=== PATIENT | female | born 1980 | race Caucasian/White ===

== ENCOUNTER 2022-11-17 06:02 | Day surgery (SDC) | payer BC, SELFPAY ==
[2022-11-17] MEDS: LACTATED RINGERS 1000 ML 1,000 ML 100 ML IV (06:00)
[2022-11-17] MEDS: SODIUM CHLORIDE 0.9 % (FLUSH) 10 ML SYRINGE IVF (06:12)
[2022-11-17 06:13] VITALS: BP 140/99; PULSE 76; RESP 16; TEMP 36.3; O2SAT 97; BMI 24.5
[2022-11-17 06:32] LABS: Ur HCG Qualitative* Negative (Negative)
[2022-11-17 06:46] LABS: Hemoglobin* 13.7 gm/dL (12.0-16.0)
[2022-11-17 07:01] LABS: Creatinine* 0.8 mg/dL (0.5-1.5); Est. Creatinine Clearance* 68.42; Estimated Glomerular Filt Rate 94 ml/min
--- NOTE | 2022-11-17 07:11 | W.ANESCHARGE ---
Anesthesia Charges Start Date/Time Anesthesia Start Date: 11/17/22 Anesthesia Start Time: 07:23 Stop Date/Time Anesthesia Stop Date: 11/17/22 Anesthesia Stop Time: 08:27
[2022-11-17 08:25] VITALS: BP 120/79; PULSE 55; RESP 16; TEMP 36.3; O2SAT 100
--- NOTE | 2022-11-17 08:29 | SUR.OPER ---
395cc fluid deficit from procedure. notified.
--- NOTE | 2022-11-17 08:29 | W.ANESCHARGE ---
Anesthesia Charges Start Date/Time Anesthesia Start Date: 11/17/22 Anesthesia Start Time: 07:23 Stop Date/Time Anesthesia Stop Date: 11/17/22 Anesthesia Stop Time: 08:27
[2022-11-17 08:30] VITALS: BP 110/85; PULSE 56; RESP 16; O2SAT 100
--- NOTE | 2022-11-17 08:36 | P.GYNPRC_ITS ---
Procedure Note Time Seen by Provider: 07:00 Date of procedure: 11/17/22 Procedure Description: Preoperative diagnosis: 42 year-old with with abnormal uterine bleeding - intermenstrual bleeding with suspected uterine septum and intrauterine synechiae. Postoperative diagnosis: Abnormal uterine bleeding. Intermenstrual bleeding with confirmed uterine septum and intrauterine synechiae. Procedure: Hysteroscopy, dilation and curettage. Ultrasound performed intraoperatively due to discrepancy between hysteroscopic findings and last ultrasound report on 08/2020. Anesthesia: Conscious sedation with paracervical block. Surgeon: Colette Aleman MD Estimated blood loss: <5 mL Specimen: Endometrial curettings to pathology. Findings: Exam under anesthesia: Cervix palpates normal. Uterus: anterior position, 6 week size, mobile, without nodularity/masses palpable. Adnexa were without fullness or nodularity. On hysteroscopy: thick uterine septum noted. Synechiae noted on right side of septum. Intraoperative ultrasound confirmed uterine septum with no concern for bicornuate uterus. Procedure: Eleanor was taken to the operating where conscious sedation was found to be adequate. She was placed in the dorsal lithotomy position. An exam under anesthesia was performed with findings stated above. She was then prepped and draped in normal sterile manner. A bivalve metal speculum was placed in the vaginal canal. The cervix and vaginal canal appear normal. A paracervical block was placed using 1%lidocaine: 5 mL injected at the 4 and 8 o'clock positions on the cervix. The anterior lip of the cervix was then grasped with a tenaculum. The cervix was dilated to Hegar 6. The uterus sounded to 7 cm. The hysteroscope advanced into the uterus and a diagnostic hysteroscopy was performed with findings stated above. Normal saline was used as the insufflation medium. Soft tissue shaver was used to obtain endometrial curetting from both sides of the septum. There was low suction from the soft tissue shaver so the [employer] sales promotion representative was contacted to troubleshoot the issue. This was resolved and specimen was obtained. The hysteroscope was then removed. Fluid deficit at the end of the procedure 370 mL. The hysteroscope and tenaculum were removed from the uterus and cervix. Excellent hemostasis noted. Nothing was used for hemostasis. The patient tolerated the procedure well. Sponge, lap and instruments counts were correct at the end of the procedure. The patient was awakened from anesthesia and taken to the recovery area in stable condition.
[2022-11-17 08:45] VITALS: BP 109/94; PULSE 57; RESP 16; O2SAT 100
== END 2022-11-17 09:04 | disposition home or self-care (01) ==
PROVIDERS: PCP Family Medicine; Visit Provider Obstetrics & Gynecology
PROC: 0UDB8ZZ Extraction of Endometrium, Via Natural or Artificial Opening Endoscopic (ICD-10-PCS; CPT 58558; principal; 2022-11-17 07:15)
DX: N93.8 Other specified abnormal uterine and vaginal bleeding (principal); N92.3 Ovulation bleeding; Q51.28 Other and unspecified doubling of uterus; N85.6 Intrauterine synechiae
CPT/HCPCS: 58558; 36415; 76857; 76998; 81025; 82565; 85018; 86850; 86900; 86901; 88305; 952; J1100; J1885; J2250; J2405; J2704; J3010; J7120

== ENCOUNTER 2022-12-15 07:01 | Outpatient (CLI) | payer BC, SELFPAY ==
--- NOTE | 2022-12-15 07:15 | CRLHL7_ITS ---
For Patients: As a result of the Century Cures Act, medical imaging exams and procedure reports are released immediately into your electronic medical record. You may view this report before your referring provider. If you have questions, please contact your health care provider. CLINICAL HISTORY: DOUBLING OF UTERUS (UTERINE SEPTATE) COMPARISON: none TECHNIQUE: Hernandez scale and color Doppler images were acquired of the kidneys and urinary bladder. FINDINGS: Sonographic images reveal a symmetric appearance of the kidneys. There is no evidence of hydronephrosis, mass or calculus. The right kidney measures 11.2cm in length and the left kidney measures 8.9cm in length. The renal cortex appears of normal thickness. The urinary bladder appears normal. Color Doppler images reveal a normal appearance of both ureteral jets. There is no evidence of bladder calculi or diverticula. IMPRESSION: Normal renal ultrasound. Dictated by Ron Yeager MD @ 12/15/2022 10:05:44 AM (Electronically Signed)
== END 2022-12-15 07:02 | disposition home or self-care (01) ==
LOC: US 07:02
PROVIDERS: PCP Family Medicine; Visit Provider Obstetrics & Gynecology
DX: Q51.28 Other and unspecified doubling of uterus (principal)
CPT/HCPCS: 76770

== ENCOUNTER 2023-02-03 07:09 | Day surgery (SDC) | payer BC, SELFPAY ==
[2023-02-03] VITALS (20 sets, daily range): BP systolic 91–142; BP diastolic 52–98; PULSE 56–100; RESP 14–18; TEMP 35.5–36.8; O2SAT 97–100; BMI 25.0
[2023-02-03 07:59] LABS: Ur HCG Qualitative* Negative (Negative)
[2023-02-03 08:00] LABS: Hemoglobin* 13.6 gm/dL (12.0-16.0)
[2023-02-03] MEDS: SODIUM CHLORIDE 0.9 % (FLUSH) 10 ML SYRINGE IVF (08:06)
[2023-02-03] MEDS: LACTATED RINGERS 1000 ML 1,000 ML 100 ML IV ×4 (08:06→13:52)
[2023-02-03 08:15] LABS: Creatinine* 0.8 mg/dL (0.5-1.5); Est. Creatinine Clearance* 68.42; Estimated Glomerular Filt Rate 94 ml/min
--- NOTE | 2023-02-03 08:18 | P.NB_ITS ---
Nerve Block Nerve Block Time Seen by Provider: 09:38 Date Seen: 02/03/23 Type of block requested by surgeon for post-operative analgesia: TAP Side: bilateral Time out performed: Yes Verification of patient name: Yes Verification of date of : Yes Site marking: site marked Name of person performing procedure: Bryon Continuous monitoring Was continuous monitoring of O2 sat, B/P, quality assurance monitor body, recorded every 15 minutes?: Yes Procedure Checklist: sterile prep, needles and gloves Ultrasound guided. Images saved: Yes Medications given in 5ml increments after negative aspiration: Marcaine %: 0.25 mL: 30 Needle gauge: 20 and Exparel mL: 10 Patient tolerated procedure well: Yes Additional comments: Needle noted adjacent to nerve Block Charges Block Charge (with Pro Fee): TAP Bilateral Use of Ultrasound Machine for Block: Yes- US Guidance/pain block
--- NOTE | 2023-02-03 08:18 | W.ANESCHARGE ---
Anesthesia Charges Start Date/Time Anesthesia Start Date: 02/03/23 Anesthesia Start Time: 09:30 Stop Date/Time Anesthesia Stop Date: 02/03/23 Anesthesia Stop Time: 13:45
--- NOTE | 2023-02-03 09:24 | W.PM.H&PU ---
History & Physical Update History & Physical Update H&P Reviewed and patient assessed: No changes noted
[2023-02-03] MEDS: CEFAZOLIN 2 GM INJ IVP (09:49)
--- NOTE | 2023-02-03 10:34 | W.ANESCHARGE ---
Anesthesia Charges Start Date/Time Anesthesia Start Date: 02/03/23 Anesthesia Start Time: 09:30 Stop Date/Time Anesthesia Stop Date: 02/03/23 Anesthesia Stop Time: 13:45
[2023-02-03] MEDS: KETOROLAC 30 MG/ML inj IVP (13:27)
--- NOTE | 2023-02-03 14:01 | PM.GYNPRHY ---
Procedure Type of Hysterectomy: Total Laparoscopic Pre-op/Post-op diagnoses: Pre-Op/Post-Op Diagnoses Operation Date: 02/03/23 08:40 <No data on this case meets the specified criteria> Procedure: Procedures Operation Date: 02/03/23 08:40 Actual Procedure Side Surgeon p Laparoscopic Total Abdominal Hysterectomy, Bilateral Salpingectomy, Left Ovarian Cystectomy, Lysis of adhesion, Cystoscopy, and all other indicated procedures Colette Aleman MD Estimated blood loss (mL): 25 Anesthesia type: General Complications: none Fluids: crystalloid Fluid amount (mL): 2,000 Urine output (mL): 850 Weight of Uterus: 3.386 oz Specimen: uterus, left tube, right tube and other (Left ovarian cyst) Disposition: floor Narrative: Preoperative diagnosis: Eleanor is a 42-year-old 2 para 2001 with abnormal uterine bleeding - menorrhagia, dysmenorrhea, uterine septum, and uterine synechiae (diagnosed on previous hysteroscopy). Postoperative diagnosis: Same. 3 cm simple left ovarian cyst. Intra-abdominal adhesions. Procedure: Total laparoscopic hysterectomy, bilateral salpingectomy, left ovarian cystectomy, lysis of adhesions, and diagnostic cystoscopy. Anesthesia: General endotracheal, TAP, and local Surgeon: Colette Aleman MD Assist: Leslee Dickerson MD Estimated blood loss: 25 mL. IV Fluid: 2000 mL Urine output: 850 mL Drains: Everett to gravity Specimen: Uterus, bilateral fallopian tubes, left ovarian cyst to pathology. Findings: On exam under anesthesia: The uterus was anterior position, approximately 6 week size, mobile without nodularity or masses palpable. Adnexa without mass or fullness palpable. On laparoscopy: Omental adhesions to the left anterior side wall, dense bladder adhesions to the lower uterine segment along previous section scar. Right ovary and fallopian tube were adhered to the right pelvic sidewall. Left ovary with a 3 cm simple ovarian cyst. Normal left Dense bladder. Liver and stomach appeared normal. Gallbladder and appendix not visualized. Procedure: Eleanor was taken to the operating room where general anesthetic was found to be adequate. She was placed in the dorsal lithotomy position and an exam under anesthesia was performed with findings stated above. She was then prepped and draped in a normal sterile manner. A Everett catheter was placed. A bivalve speculum was placed in the vaginal canal. A long Allis clamp was placed on the anterior lip of the cervix, in the uterus sounded to 9 cm. A medium size VCare uterine manipulator was then placed. The Allis clamp and speculum were removed from the cervix. Attention was then turned to performing the laparoscopic portion of the procedure. All incisions were infiltrated with 1% lidocaine with epi prior to incising the skin. A vertical, infraumbilical 0.5 cm incision was made. An 5 mm trocar was then placed under direct visualization. The abdomen was then insufflated with CO2 gas to a pressure of 15 mm of mercury. Two, pelvic ports were then placed approximately 3-4 finger breaths medial to the ischial crests. The trocar in the RLQ = 5mm, LLq = 11mm. These were placed under direct visualization. Lysis of adhesions was performed to release the omental adhesions that were adhered to the anterior abdominal wall. After lysis of adhesions, better visualization to the surgical field was obtained. Attention was then turned to performing the hysterectomy. Both ureters were visualized in the normal position bilaterally. The left fallopian tube was grasped and removed with sequential pedicles using the dissecting, ligasure blunt tip dissecting forceps. The specimen was removed. The left side of the hysterectomy was performed using the ligasure dissecting forceps. The 1st pedicles were starting with the broad ligament that was cauterized and and bisected. In sequence show pedicles were formed to divide the utero-ovarian ligament. Then sequential pedicles were made through the broad ligament. The posterior leaf of the broad ligament was then divided and sequential pedicles carried down to the level of the VCare cup. The anterior leaf of the broad ligament was then divided down to the level of the anterior aspect of the VCare cup and a bladder flap created. During the creation of the bladder flap, lysis of adhesions was performed with LigaSure, cold scissors, and Endopeanuts laparoscopic Kittner cotton. The bladder was back filled with sterile milk to help delineate bladder boundary. Upon the completion of the bladder flap. The uterine vessels were then skeletonized. The uterine vessels were then cauterized and divided. Then excess tissue was cleared over the top of the VCare cup using the dissecting forceps. The right salpingectomy and right side of the hysterectomy were then performed in a similar manner with the exception that the right fallopian tube needed to be dissected off the pelvic side wall. Right ovary remained adherent to the pelvic sidewall. The Ligasure Hippocrates Gatelab pen with the spatula attachment was then used to perform the colpotomy incising around the VCare cup. The uterus was removed and the fundus placed in the vaginal canal to maintain insufflation. The vaginal cuff was then reapproximated using 2-0 V lock suture in a running manner. Unfortunately, 1/[address] through the vaginal cuff closure, the needle was avulsed off the suture. The needle was placed in the vagina and removed intact through the vaginal. The the uterus was removed from the vaginal canal and sent to pathology. Decision was made to close the vaginal cuff from below with 0-Vicryl [id number]. All the pedicles and vaginal cuff were then closely visualized and hemostasis was noted. The Everett catheter was briefly removed. A diagnostic cystoscopy was performed using normal saline as the insufflation medium. The dome of the bladder was noted to be without injury and no evidence of any sutures from the vaginal cuff causing injury. Normal urine flow was noted through both ureteral orifices. Methylene blue IV was used to visualize the urine more easily. The Everett catheter was then replaced. Attention was then returned to the abdomen where hemostasis was verified. Left ovarian cystectomy was performed and the cyst was sent to pathology. The CO2 pressure decreased to 8mmHG and hemostasis verified. The fascia in the LLQ incision was approximated with 0-Vicryl suture using the Antwan Benavides fascial closure device. This was closed under direct visualization with the laparoscope. All trocars were removed under direct visualization. CO2 gas was allowed to escape the infraumbilical port prior to its removal. All skin incisions were re-approximated using 3-0 Monocryl in a running subcuticular manner. The remaining local anesthetic was injected into all incision sites. Exophin skin adhesive gel and adhesive bandages placed. The patient tolerated this procedure well. Sponge, lap and instrument counts were correct x2 at the end of the procedure and the patient was taken to the recovery area in stable condition. The patient received 2gm IV ancef prior to the start of the procedure. Surgical debriefed performed.
[2023-02-03] MEDS: IBUPROFEN 600 MG TABLET PO ×2 (17:36→23:03)
[2023-02-03] MEDS: ONDANSETRON 2 MG/ML inj 4 MG IVP (17:56)
--- NOTE | 2023-02-03 19:20 | PC.NURSE ---
Adjunct Nursing Faculty called Per Dr. Chung: Pt does not need to continue IV fluids as long as she is tolerating po fluids and food. Oncoming nurse updated.
--- NOTE | 2023-02-03 19:26 | PC.NURSE ---
End of shift note: Pt noted to be alert & oriented x 4 and able to make needs known. Pt has had family at beside since admission to med/surg recovery. Surgical incisions to abdomen noted to be closed with surgical glue and are open to air with no warmth, edema, redness or drainage observed upon inspection. Pt did have some nausea at beginning of dinner though this was effectively treated with PRN Zofran. Everett catheter in place with 150 mL urinary output so far this shift. Pt had 500 mL of water intake with supper. She states abdominal pain is 5/10 though declined PRN Oxycodone when offered. Scheduled Ibuprofen administered with dinner. LS Clear to all lobes bilaterally and bowel sounds active x 4. Pt states last BM was 02/03/23 AM. Pt able to reposition independently in bed. SCDs and AUGUSTIN stockings in place to bilateral lower extremities.
[2023-02-04 03:00] VITALS: BP 117/64; PULSE 91; RESP 16; TEMP 36.4; O2SAT 97
[2023-02-04 05:14] LABS: Hemoglobin* 11.5 gm/dL (12.0-16.0)
[2023-02-04 05:31] LABS: Creatinine* 0.9 mg/dL (0.5-1.5); Est. Creatinine Clearance* 60.82; Estimated Glomerular Filt Rate 81 ml/min
[2023-02-04] MEDS: IBUPROFEN 600 MG TABLET PO ×2 (05:47→11:11)
--- NOTE | 2023-02-04 06:46 | PC.NURSE ---
End of shift report [id number]: Patient reports mild discomfort to abdomen. Lap incisions clean, dry and intact. Small amount of vaginal bleeding with scant amount of serous fluid noted. Perez catheter patent, draining clear light blue urine. Patient requesting removal of catheter as it is causing her pain. Patient up and ambulatory, independently walking the hallways with , filing writer placed call to on-call, new order to DC perez catheter. Patient has continued to have large amount of output after perez removal, urine is clear, pale yellow with a hue of green. Pain managed well with scheduled ibuprofen. Tolerating food without reports of nausea or vomiting.
--- NOTE | 2023-02-04 07:42 | P.DS_ITS ---
DS: Providers Provider Time Seen by Provider: 07:00 Date Seen: 02/04/23 Primary care physician: Oanh Nuñez MD Attending Physician on discharge: Colette Aleman MD Date of Discharge: 02/04/23 DS: Diagnosis Discharge Diagnosis (1) Uterine septum: Status: Acute Problem details: s/p hysterectomy (2) Abnormal uterine bleeding: Status: Acute Problem details: s/p hysterectomy (3) Dysmenorrhea: Status: Acute Problem details: s/p hysterectomy (4) Uterine synechiae: Status: Acute Problem details: s/p hysterectomy (5) Acute blood loss anemia: Status: Acute Problem details: - Slightly anemic - Patient completely asymptomatic - No treatment necessary. I anticipate the patient will recover well from this. (6) S/P total hysterectomy: Status: Acute (7) Status post bilateral salpingectomy: Status: Acute (8) Left ovarian cyst: Status: Acute Problem details: - 3 cm simple cyst note during surgery - S/p left ovarian cystectomy [employer] DEVELOPMENT MANAGER-Discharge Summary Hospital Course Hospital Course Narrative: Eleanor is a 42 year old admitted on 02/03/2023 for scheduled surgery: Surgeries performed: Total laparoscopy hysterectomy Bilateral salpingectomy Left ovarian cystectomy Lysis of adhesions Diagnostic cystoscopy menorrhagia, dysmenorrhea, . Indication for surgery: menorrhagia, dysmenorrhea, uterine septum, and uterine synechiae. Intraoperative findings were notable for: On exam under anesthesia: The uterus was anterior position, approximately 6 week size, mobile without nodularity or masses palpable. Adnexa without mass or fullness palpable. On laparoscopy: Omental adhesions to the left anterior side wall, dense bladder adhesions to the lower uterine segment along previous section scar. Right ovary and fallopian tube were adhered to the right pelvic sidewall. Left ovary with a 3 cm simple ovarian cyst. Normal left Dense bladder. Liver and stomach appeared normal. Gallbladder and appendix not visualized. She had an uncomplicated surgery. Postoperative course has been uneventful. She progressed excellently through her postoperative milestones. Vitals have been stable. She has remained afebrile. Today, on postoperative day 1, she reports the pain is well controlled. She has been able to ambulate Without difficulty. She is tolerating regular diet. She is passing flatus. Perez catheter has been removed, and she is voiding without difficulty. Time Spent with Patient Time attestation: Total time spent providing and/or coordinating discharge services: Time spent: Less than 30 minutes [employer] DEVELOPMENT MANAGER - Exam Physical Exam: Vital signs: Temp Pulse Resp BP Pulse Ox O2 Del Method 97.5 F L 91 16 117/64 97 Room Air 02/04/23 03:00 02/04/23 03:00 02/04/23 03:00 02/04/23 03:00 02/04/23 03:00 02/04/23 03:00 Narrative: Physical exam: General: No acute distress Psych: Alert and oriented x4, full affect HEENT: Normocephalic, atraumatic Neck: No cervical adenopathy, no thyromegaly Heart: Regular rate and rhythm, no murmur rub or gallop Lungs: Clear to auscultation bilaterally Abdomen: Normoactive bowel sounds, soft, minimal tenderness, no rebound, or guarding. Mild distension. Incision: Appropriately tender to palpation. Clean, dry, and intact. No erythema, induration, or abnormal discharge/breakdown - 3 incisions. Skin: No lesions or rashes Lower extremities: No edema or erythema Pelvic exam: No bleeding on pad. [employer] DEVELOPMENT MANAGER - DS: Data Data Completed and Pending Labs on day of discharge: Labs from last 24 hours 02/04/23 02/03/23 02/03/23 05:05 Unknown 07:50 Hgb 11.5 L 13.6 Creatinine 0.9 0.8 Estimated Creat Clear 60.82 68.42 Estimated GFR 81 94 Urine HCG, Qual Negative Blood Type A Negative Antibody Screen NEGATIVE Procedures Procedures: Procedures Operation Date: 02/03/23 08:40 Actual Procedure Side Surgeon p Laparoscopic Total Abdominal Hysterectomy, Bilateral Salpingectomy, Cystectomy, Lysis of adhesion, Cystoscopy, and all other indicated procedures Colette Aleman MD Complications: none Discharge Plan Discharge Disposition: Home, Self-Care Discharging Surgeon: Colette Aleman MD Follow-Up Appointment: 2 week op note Prescriptions: New docusate sodium 100 mg Capsule 100 mg PO BID PRN (Reason: Constipation) 30 Days Qty: 60 0RF ibuprofen 600 mg Tablet 600 mg PO Q6H 30 Days Qty: 120 0RF simethicone 80 mg Tablet,Chewable 160 mg PO Q4H PRN (Reason: gas) 30 Days Qty: 60 0RF oxycodone 5 mg Tablet 5 mg PO Q6H PRN (Reason: Moderate Pain) 14 Days Qty: 15 0RF acetaminophen [Tylenol Extra Strength] 500 mg tablet 500 mg PO Q6H PRN (Reason: fever or pain) Qty: 60 0RF Continued spironolactone 100 mg tablet 100 mg PO QDAY Discharge Diet: Regular Patient Instructions: Surgical Site Infections (DC) Additional Instructions: LAPAROSCOPY POSTOPERATIVE INSTRUCTIONS ACTIVITY * No heavy lifting/pushing/pulling for 4-6 weeks. Do not lift anything more than about 15 lbs (such as laundry, groceries, children, pets), vacuum, push heavy doors or grocery carts, etc. You may climb stairs as tolerated. * Do not put anything in the vagina for 6-8 weeks after surgery unless otherwise instructed by your doctor (including tampons, douching, sexual intercourse, etc). * No driving for about 2 weeks after surgery, while you are taking narcotic pain medication, or until you feel that you are ready. Practice checking your blind spot and stepping hard on the brake. * Avoid sitting or lying in bed for more than 2 hours at a time while you are awake to reduce your risk of blood clots. * You may return to work when directed by your physician. Please contact your doctor if you need any return to work letters or medical leave paperwork to be completed. WOUND CARE * You will have 4 small incisions on your abdomen. There will be dissolvable stitches under your skin that do not need to be removed. * Shower daily after surgery. Clean your incision with mild antibacterial soap and water. Pat your incision dry with a clean towel. No tub baths until wound is completely healed. * Wash your hands frequently, especially before touching your incision, changing any dressings, after using the restroom, and before eating. PAIN MANAGEMENT * Take your oral pain medication as needed. You should be taking Ibuprofen 600mg every 6 hours with 1000 mg of Tylenol every 6 hours. You can take these together every six hours or alternate them every 3 hours. You should then take the oxycodone as needed if you have breakthrough pain on top of the Tylenol and Ibuprofen. * Some pain medications can cause constipation so you should take a stool softener (i.e. colace/senna) while you are on these medications. * You may also take milk of magnesia or Miralax for constipation. WHAT TO EXPECT AT HOME * Recovery from surgery is generally 2-4 weeks, but sometimes longer for more strenuous activity. It is normal to be very tired during this time. * It is normal to have some drainage or a small amount of vaginal bleeding after surgery which may last up to 6 weeks. * You may go home with a perez catheter in your bladder. If so, you will need to follow up for a nurse visit in 7-10 days for removal. * You will most likely experience gas pain, abdominal swelling, or shoulder pain for 24-72 hours after surgery. This is from the carbon dioxide gas put into your abdomen to better visualize your organs. A warm shower, heating pad, and/or walking may help. WHEN TO CALL YOUR DOCTOR : * Fever (>100.4?F or 38.0?C) or chills. * Incision problems such as redness, warmth, swelling, or foul-smelling drainage. * Severe nausea or persistent vomiting. * Bright red vaginal bleeding (soaking >1 pad/hour) or foul-smelling vaginal drainage. * Severe pain not relieved with pain medication. * Pain and swelling in your legs, especially if it is only on one side and not the other. * Pain with urination, cloudy urine, or foul-smelling urine. * Or if you have any other problems or questions. CALL 911 OR GO TO THE EMERGENCY ROOM IF YOU HAVE: Any shortness of breath, d ifficulty breathing, or chest pain. Forms: Work/School Release Follow-up: Colette Aleman MD [Staff Physician] - Oanh Nuñez MD [Primary Care Provider] - Discharge Orders: Discharge Order (Routine); Ordered 02/04/23 Ordered By: Colette Aleman
[2023-02-04 08:40] VITALS: BP 111/73; PULSE 74; RESP 18; TEMP 36.9; O2SAT 94
--- NOTE | 2023-02-04 14:37 | PC.NURSE ---
shift note: vss stable. pt up indept. abd appears distended,tender, soft on palpation. Lap sites to abd c/d/i. pt has active BS x4. pt tolerating reg diet. IV dc'd intact. reviewed dc instructions, copies sent with pt at ri. belongings sent with pt at ri.
== END 2023-02-04 11:50 | disposition home or self-care (01) ==
LOC: OR 07:10 → MEDSURG 07:12
PROVIDERS: PCP Family Medicine; Visit Provider Obstetrics & Gynecology
PROC: 0UT94ZZ Resection of Uterus, Percutaneous Endoscopic Approach (ICD-10-PCS; CPT 58571; principal; 2023-02-03 08:30)
DX: N92.0 Excessive and frequent menstruation with regular cycle (principal); N94.6 Dysmenorrhea, unspecified; N83.292 Other ovarian cyst, left side; N85.6 Intrauterine synechiae; Q51.28 Other and unspecified doubling of uterus; K66.0 Peritoneal adhesions (postprocedural) (postinfection); G89.18 Other acute postprocedural pain; D62 Acute posthemorrhagic anemia
CPT/HCPCS: 58571; 58662; 49329; 00840; 36415; 64488; 76942; 81025; 82565; 85018; 86850; 86900; 86901; 88307; A9270; C9290; J0330; J0665; J0690; J1100; J1170; J1885; J2250; J2371; J2405; J2704; J3010; J3490; J7120